=== PATIENT | female | born 1990 | race Asian ===

== ENCOUNTER 2023-06-29 17:00 | Inpatient (IN) | payer OTHER ==
[2023-06-29 18:56] VITALS: BMI 22.1
[2023-06-29] MEDS: ELECTROLYTE-148 SOLN 1,000 ML IV SCH (19:15)
[2023-06-29] MEDS ORDERED: OXYTOCIN 30 UNITS in 0.9% NS 30 UNIT/500 ML INFUS.BAG IVPB SCH (19:15)
[2023-06-29 19:45] LABS: HEMATOCRIT 37.7 % (32.4-45.2); HEMOGLOBIN 12.6 GM/dL (10.7-15.3); MCH 33.2 pg (25.7-33.7); MCHC 33.4 g/dl (32.0-36.0); MEAN CELL VOLUME 99.6 fl (80-96); MEAN PLT VOLUME 8.7 fl (7.5-11.1); PLATELET COUNT 199 10^3/uL (134-434); RBC 3.79 M/mm3 (3.60-5.2); WHITE BLOOD COUNT 20.2 K/mm3 (4.0-10.0)
[2023-06-29 19:51] LABS: INR 0.99 (0.83-1.09); PROTHROMBIN TIME (PATIENT) 11.5 SEC (9.7-13.0)
[2023-06-29 19:54] LABS: ACTIVATED PTT 30.7 SECONDS (25.2-36.5)
[2023-06-29 20:03] LABS: POTASSIUM 3.7 mmol/L (3.5-5.1)
[2023-06-29 20:04] LABS: CALCIUM 8.5 mg/dL (8.5-10.1)
[2023-06-29 20:05] LABS: BLOOD UREA NITROGEN 5.3 mg/dL (7-18)
[2023-06-29] MEDS ORDERED: AMPICILLIN SODIUM 2 GM VIAL ONE (20:06)
[2023-06-29 20:09] LABS: CREATININE 0.5 mg/dL (0.55-1.3)
[2023-06-29] MEDS: AMPICILLIN SODIUM 2 GM VIAL IVPB ONE (20:10)
[2023-06-29] MEDS ORDERED: FENTANYL/BUPIVACAINE/NS/PF - PCEA - 50 ML DISP.SYRIN EP ONE (20:13)
[2023-06-29] MEDS ORDERED: NALOXONE HCL 0.4 MG/ML VIAL IVPUSH PRN (20:16)
[2023-06-29] MEDS ORDERED: LIDO 2%/EPI 1:200000 PRESRVFRE (20 ML SDVIAL) ONE (20:21)
[2023-06-29] MEDS ORDERED: BUPIVACAINE HCL/PF 0.25% (2.5MG/ML) 10 ML VIAL ONE (20:21)
[2023-06-29] MEDS ORDERED: FENTANYL CITRATE/PF 50 MCG/ML VIAL ONE (20:21)
[2023-06-29] MEDS: FENTANYL/BUPIVACAINE/NS/PF - PCEA - 50 ML DISP.SYRIN EP SCH (20:40)
[2023-06-29 21:18] LABS: HIV INTERPRETATION NEGATIVE (NEGATIVE); OVALOCYTE 1+; TEAR DROP CELLS 1+
[2023-06-29 21:32] LABS: PLATELET ESTIMATE ADEQUATE
[2023-06-29] MEDS ORDERED: OXYTOCIN 20 UNITS in 0.9% NS 20 UNIT/1,000 ML INFUS.BAG IV ONE (22:27)
[2023-06-29] MEDS ORDERED: AMPICILLIN SODIUM 1 GM VIAL ONE (23:00)
[2023-06-29] MEDS: AMPICILLIN - 1 GM in SODIUM CHLORIDE 100 ML IVPB SCH (23:10)
[2023-06-30] MEDS: OXYTOCIN 20 UNITS in 0.9% NS 20 UNIT/1,000 ML INFUS.BAG IV SCH (00:39)
[2023-06-30] MEDS ORDERED: METHYLERGONOVINE MALEATE 0.2 MG/1 ML AMP IM PRN (01:01)
[2023-06-30] MEDS ORDERED: BENZOCAINE 28 GM HEMORRHOIDAL OINTMENT TP PRN (01:01)
[2023-06-30] MEDS ORDERED: BISACODYL 10 MG SUPP.RECT RC PRN (01:01)
[2023-06-30] MEDS ORDERED: ACETAMINOPHEN 325 MG TABLET (FP) ONE (01:46)
[2023-06-30] MEDS: ACETAMINOPHEN 325 MG TABLET (FP) PO PRN (02:06)
[2023-06-30] MEDS ORDERED: IBUPROFEN 600 MG TABLET (FP) PO ONE (02:09)
[2023-06-30] MEDS: IBUPROFEN 600 MG TABLET (FP) PO PRN (02:13)
[2023-06-30] MEDS: oxyCODONE HCL 5 MG TABLET PO PRN (03:28)
[2023-06-30] MEDS: WITCH HAZEL 50% (TUCKS) 40 PAD/JAR PAD TP PRN (04:41)
[2023-06-30] MEDS: BENZOCAINE 20% 57 GM BOTTLE TP PRN (04:42)
[2023-06-30 06:22] LABS: HEMATOCRIT 31.7 % (32.4-45.2); HEMOGLOBIN 10.4 GM/dL (10.7-15.3); MCH 33.2 pg (25.7-33.7); MCHC 32.9 g/dl (32.0-36.0); MEAN CELL VOLUME 100.9 fl (80-96); MEAN PLT VOLUME 8.9 fl (7.5-11.1); PLATELET COUNT 180 10^3/uL (134-434); RBC 3.15 M/mm3 (3.60-5.2); RDW 13.8 % (11.6-15.6)
[2023-06-30] MEDS: oxyCODONE HCL 5 MG TABLET PO ONE (06:24)
[2023-06-30 06:34] LABS: WHITE BLOOD COUNT 30.4 K/mm3 (4.0-10.0)
[2023-06-30] MEDS: FERROUS SO4 325 MG TABLET (FP) PO SCH (09:09)
[2023-06-30] MEDS: PRENATAL VITAMINS W/ FOLIC ACID TABLET (FP) PO SCH (09:09)
[2023-06-30 09:13] LABS: ANISOCYTOSIS 1+; MACROCYTOSIS 1+
[2023-06-30 18:07] VITALS: RESP 18
[2023-06-30 19:19] LABS: BASO % 0.2 % (0-2.0); EOS % 0.1 % (0-4.5); HEMATOCRIT 27.9 % (32.4-45.2); HEMOGLOBIN 9.2 GM/dL (10.7-15.3); LYMPH % 5.7 % (8-40); MCH 33.3 pg (25.7-33.7); MCHC 32.9 g/dl (32.0-36.0); MEAN CELL VOLUME 101.2 fl (80-96); MEAN PLT VOLUME 9.4 fl (7.5-11.1); MONO % 8.4 % (3.8-10.2); NEUT % 85.6 % (42.8-82.8); PLATELET COUNT 202 10^3/uL (134-434); RBC 2.75 M/mm3 (3.60-5.2); RDW 13.9 % (11.6-15.6); WHITE BLOOD COUNT 26.7 K/mm3 (4.0-10.0)
[2023-06-30 20:15] LABS: ANISOCYTOSIS 1+; MACROCYTOSIS 0
[2023-06-30 21:32] LABS: INR 1.07 (0.83-1.09); PROTHROMBIN TIME (PATIENT) 12.4 SEC (9.7-13.0)
[2023-06-30 21:35] LABS: ACTIVATED PTT 28.6 SECONDS (25.2-36.5)
[2023-06-30] MEDS: CEFOXITIN SODIUM 2 GM in DEXTROSE 5%-WATER 100 ML IVPB SCH (21:57)
[2023-07-01] MEDS: CEFOXITIN SODIUM 2 GM in DEXTROSE 5%-WATER 100 ML IVPB SCH (06:08)
[2023-07-01 07:56] LABS: HEMATOCRIT 24.9 % (32.4-45.2); HEMOGLOBIN 8.2 GM/dL (10.7-15.3); MCH 33.5 pg (25.7-33.7); MEAN CELL VOLUME 101.3 fl (80-96); MEAN PLT VOLUME 8.8 fl (7.5-11.1); PLATELET COUNT 194 10^3/uL (134-434); RBC 2.46 M/mm3 (3.60-5.2); WHITE BLOOD COUNT 19.9 K/mm3 (4.0-10.0)
[2023-07-02] MEDS: SENNOSIDES/DOCUSATE COMBO (SENNA PLUS) TABLET (UD) PO PRN (09:33)
[2023-07-02 09:39] VITALS: BP 103/61; PULSE 78; TEMP 97.8
== END 2023-07-02 15:05 | disposition home or self-care (01) | DRG 768 ==
LOC: JDEL 17:00 → JLDR 18:30 → J3W 06-30 02:49
PROVIDERS: ADMIT Obstetrics & Gynecology; ATTEND Obstetrics & Gynecology
PROC: 10E0XZZ Delivery of Products of Conception, External Approach (ICD-10-PCS; principal; 2023-06-30)
PROC: 0U9MXZZ Drainage of Vulva, External Approach (ICD-10-PCS; 2023-06-30)
DX: O70.0 First degree perineal laceration during delivery (principal); Z37.0 Single live birth; O90.89 Other complications of the puerperium, not elsewhere classified; O90.2 Hematoma of obstetric wound; Z3A.39 39 weeks gestation of pregnancy
CPT/HCPCS: 36415; 74177-TC; 80048; 85025; 85027; 85610; 85730; 86780; 86850; 86900; 86901; 87389; Q9967